=== PATIENT | female | born 1945 | race Two or more races ===

== ENCOUNTER → 2018-01-20 | Emergency (ER) | payer OTHER ==
[~2018-01-20] VITALS: Ht 157.5 cm; Wt 68.9 kg
[~2018-01-20] MED LIST: ALTACE10 MG; ASA81 MG; BICARSIM80 MG PO; CLONIDINE HCL0.1 M1; FENOFIBRATE160 MG; FOLGARD TABLET1 EACH; HUMULIN N3 ML; LEVOTHROID25 MCG; NABUMETONE500 MG PO; RANITIDINE HCL150 M1; VERAPAMIL ER240 MG; VITA-C120 GM PO
== END | disposition home or self-care (01) ==
LOC: ER 11:38
DX: S40.011A Contusion of right shoulder, initial encounter (principal); S40.021A Contusion of right upper arm, initial encounter; W18.09XA Striking against other object with subsequent fall, initial encounter; Y93.89 Activity, other specified; Y92.098 Other place in other non-institutional residence as the place of occurrence of the external cause; Y99.8 Other external cause status

== ENCOUNTER 2020-07-12 12:35 | Outpatient (CLI) | payer OTHER | END 2020-07-12 12:47 | disposition home or self-care (01) | LOC: SONOGRAMA 12:35 | PROVIDERS: ATTEND Pathology Anatomic Pathology & Clinical Pathology | DX: E04.2 Nontoxic multinodular goiter (principal) ==

== ENCOUNTER 2022-01-05 10:17 | Outpatient (CLI) | payer OTHER | END 2022-01-05 10:21 | disposition home or self-care (01) | LOC: SONOGRAMA 10:17 | PROVIDERS: ATTEND Pathology Anatomic Pathology & Clinical Pathology | DX: E04.2 Nontoxic multinodular goiter (principal) ==

== ENCOUNTER 2023-04-11 08:30 | Outpatient (CLI) | payer OTHER | END 2023-04-11 08:39 | disposition home or self-care (01) | LOC: TOM 08:30 | DX: R19.4 Change in bowel habit (principal) ==

== ENCOUNTER 2025-03-12 10:29 | Outpatient (CLI) | payer OTHER | END 2025-03-12 10:35 | disposition home or self-care (01) | LOC: SONOGRAMA 10:29 | PROVIDERS: ATTEND Pathology Anatomic Pathology & Clinical Pathology | DX: D34 Benign neoplasm of thyroid gland (principal); E07.89 Other specified disorders of thyroid; E04.2 Nontoxic multinodular goiter ==